=== PATIENT | male | born 1960 | race Caucasian/White ===

== ENCOUNTER 2017-08-02 12:41 | Emergency (ER) | payer OTHER ==
--- NOTE | 2017-08-02 12:52 | CPEKG ---
Heart Rate: 69 RR Interval: 870 P-R Interval: 192 QRSD Interval: 92 QT Interval: 396 QTC Interval: 425 P Vergas: 42 QRS Vergas: 53 T Wave Vergas: 16 EKG Severity - NORMAL ECG - EKG Impression: SINUS RHYTHM Electronically Signed By: Jacob Najera 05-Aug-2017 08:43:30
[2017-08-02 13:01] LABS: % IMMATURE GRANULYOCYTES 0.1 % (0.0-1.1); ABSOLUTE IMMATURE GRANULOCYTES 0.01 10^3/uL (0.00-0.10); ADD DIFF? NO; ADD MORPH? NO; ADD SCAN? NO; ATYPICAL LYMPHOCYTE FLAG 0 (0-99); FRAGMENT RBC FLAG 0 (0-99); HEMATOCRIT 45.1 % (40.0-51.0); HEMOGLOBIN 15.7 g/dL (13.7-17.5); LEFT SHIFT FLG 0 (0-99); LIPEMIA HEMOLYSIS FLAG 90 (0-99); MEAN CELL HEMOGLOBIN 31.5 pg (27.9-34.1); MEAN CELL HEMOGLOBIN CONCENTR. 34.8 g/dL (32.4-36.7); MEAN CELL VOLUME 90.4 fL (81.5-99.8); MEAN PLATELET VOLUME 10.5 fL (8.7-11.7); PLATELET CLUMPS FLAG 0 (0-99); PLATELET COUNT 208 10^3/uL (150-400); RED BLOOD CELL COUNT 4.99 10^6/uL (4.40-6.38); RED CELL DISTRIBUTION WIDTH 13.6 % (11.5-15.2)
[2017-08-02 13:03] VITALS: TEMP 97.9
[2017-08-02 13:18] LABS: ANION GAP 15 mEq/L (8-16); CALCIUM 9.9 mg/dL (8.5-10.4); CARBON DIOXIDE 23 mEq/l (22-31); CHLORIDE 104 mEq/L (97-110); CREATININE 1.1 mg/dL (0.7-1.3); GLOMERULAR FILTRATION RATE > 60; GLUCOSE 97 mg/dL (70-100); POTASSIUM 3.8 mEq/L (3.5-5.2); SODIUM 142 mEq/L (134-144)
[2017-08-02 13:30] LABS: TROPONIN I < 0.012 ng/mL (0.000-0.034)
[2017-08-02 13:43] LABS: HEMATOCRIT 45.1 % (40.0-51.0)
[2017-08-02 13:49] VITALS: RESP 18
--- NOTE | 2017-08-02 14:06 | EDPHY ---
H & P Time Seen by Provider: 08/02/17 12:45 HPI/ROS: 57 yo M presents c/o chest pain for approximately 3-4 weeks, seems to be occuring more frequently. No associated symptoms He has been playing pickle ball quite frequently he denies shortness of breath with exertion. He denies any prolonged travel, leg pain leg swelling history of blood clot in his family or in himself. No fevers or chills, no cough. Review of systems As per HPI General no fever no chills no weakness HEENT no eye pain no eye discharge. No eye redness, no sore throat Respiratory no cough, no shortness of breath Cardiac positive chest pain, no peripheral edema GI no abdominal pain, no diarrhea, no constipation, no nausea, no vomiting no flank pain, no hematuria, no dysuria Musculoskeletal no myalgias, no joint pain Heme no easy bruising, no easy bleeding Endo no polyuria, no polydipsia Skin no rashes, no pruritus Neuro no syncope, no dizziness, no headaches Psych is no suicidal ideation, no homicidal ideation Past Medical/Surgical History: GERD Social History: Mom denies smoking or drug use Alcohol socially Smoking Status: Former smoker Physical Exam: 57-year-old male alert and oriented no acute distress nontoxic appearance HEENT atraumatic normocephalic, extraocular muscles intact, anicteric Oropharynx negative for erythema negative exudate, tolerating her own secretions Neck supple no meningismus Lungs clear to auscultation bilaterally Chest with tenderness to palpation at sternal costal junction bilaterally, no swelling no erythema no ecchymosis no rash Heart regular rate and rhythm without murmur rub or gallop Abdomen nondistended normoactive bowel sounds soft nontender Back no CVA tenderness, no step-offs, no spinal tenderness Extremities no cyanosis clubbing or edema Neuro alert and oriented, no focal deficits Constitutional: Initial Vital Signs Temperature (C) 36.6 C 08/02/17 12:57 Heart Rate 71 08/02/17 12:57 Respiratory Rate 16 08/02/17 12:57 Blood Pressure 167/102 H 08/02/17 12:57 O2 Sat (%) 95 08/02/17 12:57 O2 Delivery Mode Room Air Allergies/Adverse Reactions: Penicillins Allergy (Verified 08/02/17 12:57) Home Medications: Medication Instructions Recorded PRILOSEC 08/02/17 Medical Decision Making ED Course/Re-evaluation: Patient seen and evaluated for chest pain of approximately 3-4 weeks duration worse when sitting improved when standing, no associated symptoms otherwise no particular pattern. Labs CBC, BMP, sed rate, troponin, TSH all within normal limits D-dimer negative Chest x-ray negative Impression Atypical chest pain Plan Return to Dr. Ramires for further evaluation Differential Diagnosis: Myocardial infarction, GERD, costochondritis, bronchitis, pneumonia, pulmonary embolus - Data Points Laboratory Results: Laboratory Results 08/02/17 12:55 08/02/17 12:55 08/02/17 08/02/17 08/02/17 12:55 12:55 12:55 WBC RBC Hgb Hct 45.1 % % (40.0-51.0) MCV MCH MCHC RDW Plt Count MPV Neut % (Auto) Lymph % (Auto) [place] % (Auto) Eos % (Auto) Baso % (Auto) Nucleat RBC Rel Count Absolute Neuts (auto) Absolute Lymphs (auto) Absolute Monos (auto) Absolute Eos (auto) Absolute Basos (auto) Absolute Nucleated RBC Immature Gran % Immature Gran # ESR 7 MM/HR MM/HR (0-20) D-Dimer 0.29 ug/mLFEU ug/mLFEU (0.00-0.50) Sodium Potassium Chloride Carbon Dioxide Anion Gap BUN Creatinine Estimated GFR Glucose Calcium Troponin I TSH 2.260 uIU/mL uIU/mL (0.465-4.680) 08/02/17 08/02/17 12:55 12:55 WBC 8.59 10^3/uL 10^3/uL (3.80-9.50) RBC 4.99 10^6/uL 10^6/uL (4.40-6.38) Hgb 15.7 g/dL g/dL (13.7-17.5) Hct 45.1 % % (40.0-51.0) MCV 90.4 fL fL (81.5-99.8) MCH 31.5 pg pg (27.9-34.1) MCHC 34.8 g/dL g/dL (32.4-36.7) RDW 13.6 % % (11.5-15.2) Plt Count 208 10^3/uL 10^3/uL (150-400) MPV 10.5 fL fL (8.7-11.7) Neut % (Auto) 73.1 % % (39.3-74.2) Lymph % (Auto) 19.7 % % (15.0-45.0) [place] % (Auto) 5.6 % % (4.5-13.0) Eos % (Auto) 1.0 % % (0.6-7.6) Baso % (Auto) 0.5 % % (0.3-1.7) Nucleat RBC Rel Count 0.0 % % (0.0-0.2) Absolute Neuts (auto) 6.28 10^3/uL 10^3/uL (1.70-6.50) Absolute Lymphs (auto) 1.69 10^3/uL 10^3/uL (1.00-3.00) Absolute Monos (auto) 0.48 10^3/uL 10^3/uL (0.30-0.80) Absolute Eos (auto) 0.09 10^3/uL 10^3/uL (0.03-0.40) Absolute Basos (auto) 0.04 10^3/uL 10^3/uL (0.02-0.10) Absolute Nucleated RBC 0.00 10^3/uL 10^3/uL (0-0.01) Immature Gran % 0.1 % % (0.0-1.1) Immature Gran # 0.01 10^3/uL 10^3/uL (0.00-0.10) ESR D-Dimer Sodium 142 mEq/L mEq/L (134-144) Potassium 3.8 mEq/L mEq/L (3.5-5.2) Chloride 104 mEq/L mEq/L (97-110) Carbon Dioxide 23 mEq/l mEq/l (22-31) Anion Gap 15 mEq/L mEq/L (8-16) BUN 14 mg/dL mg/dL (7-23) Creatinine 1.1 mg/dL mg/dL (0.7-1.3) Estimated GFR > 60 Glucose 97 mg/dL mg/dL (70-100) Calcium 9.9 mg/dL mg/dL (8.5-10.4) Troponin I < 0.012 ng/mL ng/mL (0.000-0.034) TSH Departure - Departure Disposition: Home, Routine, Self-Care Clinical Impression: Atypical chest pain Condition: Good Instructions: Chest Pain (ED) Referrals: Judson Ramires MD [Primary Care Provider] - As per Instructions
[2017-08-02 16:25] VITALS: BP 153/101; PULSE 77; O2SAT 97
== END 2017-08-02 14:15 | disposition home or self-care (01) ==
LOC: CED 12:41
DX: R07.89 Other chest pain (principal); Z87.891 Personal history of nicotine dependence
CPT/HCPCS: 71020-PO; 80048-PO; 84443-PO; 84484-PO; 85025-PO; 85378-PO; 85652-PO